=== PATIENT | male | born 1980 | race Caucasian/White ===

== ENCOUNTER 2020-01-06 12:14 | Emergency (ER) | payer OTHER ==
[~2020-01-06] VITALS: Ht 172.7 cm; Wt 65.9 kg
[2020-01-06 15:02] VITALS: BP 114/71
== END 2020-01-06 15:20 | disposition home or self-care (01) ==
LOC: EMS 12:18
DX: Z03.818 Encounter for observation for suspected exposure to other biological agents ruled out (principal)
CPT/HCPCS: 87635; 99283; U0003